=== PATIENT | female | born 1970 ===

== ENCOUNTER → 2017-03-07 | Outpatient (CLI) | payer BC | LOC: FIMAGING 09:26 | DX: Z12.31 Encounter for screening mammogram for malignant neoplasm of breast (principal) | CPT/HCPCS: G0202 ==

== ENCOUNTER → 2017-03-19 | Outpatient (CLI) | payer BC | LOC: FIMAGING 12:11 | PROVIDERS: ATTEND Family Medicine Sports Medicine | DX: R92.8 Other abnormal and inconclusive findings on diagnostic imaging of breast (principal) ==